=== PATIENT | male | born 1995 | race Caucasian/White ===

== ENCOUNTER 2018-04-09 11:32 | Emergency (ER) | payer OTHER ==
[2018-04-09 11:35] VITALS: BP 117/68; PULSE 87; TEMP 97.5; BMI 20.7
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
[2018-04-09] MEDS ORDERED: IBUPROFEN 400 MG TABLET (FP) PO ONE ×2 (12:27→12:30)
== END 2018-04-09 13:21 | disposition home or self-care (01) ==
LOC: JERFT 11:32
DX: M25.561 Pain in right knee (principal); V19.9XXA Pedal cyclist (driver) (passenger) injured in unspecified traffic accident, initial encounter; Y92.488 Other paved roadways as the place of occurrence of the external cause; Y93.55 Activity, bike riding; Y99.8 Other external cause status
CPT/HCPCS: 73562-TC-RT-FY; 99281-25

== ENCOUNTER 2022-06-13 23:56 | Emergency (ER) | payer OTHER ==
[2022-06-14 00:37] VITALS: RESP 18; BMI 19.2
[2022-06-14] MEDS ORDERED: IBUPROFEN 400 MG TABLET (FP) PO ONE ×2 (00:45→00:51)
[2022-06-14] MEDS ORDERED: TETANUS AND DIPHTHERIA TOXOID 0.5 ML DISP.SYRIN IM ONE (01:10)
[2022-06-14] MEDS ORDERED: DIPHTH,PERTUSS(ACELL),TET 0.5 ML DISP.SYRIN IM ONE (02:43)
[2022-06-14 04:21] LABS: BASO % 0.6 % (0-2.0); EOS % 0.1 % (0-4.5); HEMATOCRIT 41.2 % (35.4-49); HEMOGLOBIN 13.1 GM/dL (11.7-16.9); LYMPH % 15.8 % (8-40); MCH 24.1 pg (25.7-33.7); MCHC 31.8 g/dl (32.0-35.9); MEAN CELL VOLUME 75.9 fl (80-96); MEAN PLT VOLUME 7.5 fl (7.5-11.1); MONO % 5.5 % (3.8-10.2); PLATELET COUNT 370 10^3/uL (134-434); RBC 5.43 M/mm3 (4.00-5.60); RDW 18.1 % (11.9-15.9); WHITE BLOOD COUNT 8.9 K/mm3 (4.0-10.0)
[2022-06-14 04:48] LABS: CHLORIDE 103 mmol/L (98-107); SODIUM 137 mmol/L (136-145)
[2022-06-14 04:50] LABS: CALCIUM 8.5 mg/dL (8.5-10.1)
[2022-06-14 04:51] LABS: ALBUMIN 2.9 g/dl (3.4-5.0); ANION GAP 7 MMOL/L (8-16); BLOOD UREA NITROGEN 4.9 mg/dL (7-18); CO2 27 mmol/L (21-32); GLUCOSE,RANDOM 114 mg/dL (74-106); MAGNESIUM 1.7 mg/dL (1.8-2.4)
[2022-06-14 04:53] LABS: SGPT/ALT 22 U/L (13-61)
[2022-06-14 04:54] LABS: CREATININE 0.5 mg/dL (0.55-1.3); SGOT/AST 21 U/L (15-37)
[2022-06-14 04:55] LABS: BILIRUBIN,TOTAL 0.6 mg/dL (0.2-1)
[2022-06-14 04:56] LABS: ALK PHOS 172 U/L (45-117)
[2022-06-14 07:26] VITALS: PULSE 57; TEMP 98.2
[2022-06-14 08:56] VITALS: BP 126/75
== END 2022-06-14 10:20 | disposition short-term general hospital (02) ==
LOC: JER 23:56
DX: S13.120A Subluxation of C1/C2 cervical vertebrae, initial encounter (principal); S32.030A Wedge compression fracture of third lumbar vertebra, initial encounter for closed fracture; V29.9XXA Motorcycle rider (driver) (passenger) injured in unspecified traffic accident, initial encounter; Y92.9 Unspecified place or not applicable
CPT/HCPCS: 36415; 70450-TC; 71260-TC; 72125-TC; 72128-TC; 72131-TC; 72170-TC-FY; 74177-TC; 80053; 80307; 83735; 84100; 85025; 86850; 86900; 86901; 99285-25; Q9967